=== PATIENT | male | born 1960 | race Caucasian/White ===

== ENCOUNTER → 2016-08-10 | Outpatient (CLI) | payer BC | LOC: BHSO 11:11 | DX: F10.20 Alcohol dependence, uncomplicated (principal) ==

== ENCOUNTER → 2016-11-02 | Outpatient (CLI) | payer BC | LOC: BHSO 10:13 | DX: F10.20 Alcohol dependence, uncomplicated (principal) ==

== ENCOUNTER → 2017-02-02 | Outpatient (CLI) | payer BC | LOC: BHSO 09:55 | DX: F10.20 Alcohol dependence, uncomplicated (principal) ==

== ENCOUNTER → 2017-04-26 | Outpatient (CLI) | payer BC | LOC: BHSO 08:15 | DX: F10.20 Alcohol dependence, uncomplicated (principal) ==

== ENCOUNTER → 2017-12-14 | Outpatient (CLI) | payer BC | LOC: BHSO 08:05 | DX: F10.20 Alcohol dependence, uncomplicated (principal) | CPT/HCPCS: G0463 ==

== ENCOUNTER → 2018-05-31 | Outpatient (CLI) | payer BC | LOC: BHSO 07:58 | DX: F10.20 Alcohol dependence, uncomplicated (principal) | CPT/HCPCS: G0463 ==

== ENCOUNTER → 2018-08-10 | Outpatient (CLI) | payer BC | LOC: BHSO 08:11 | DX: F41.1 Generalized anxiety disorder (principal) | CPT/HCPCS: G0463 ==

== ENCOUNTER → 2018-10-03 | Outpatient (CLI) | payer BC | LOC: BHSO 07:55 | DX: F10.20 Alcohol dependence, uncomplicated (principal) | CPT/HCPCS: G0463 ==

== ENCOUNTER → 2019-01-12 | Outpatient (CLI) | payer BC | LOC: BHSO 08:03 | DX: F10.20 Alcohol dependence, uncomplicated (principal) | CPT/HCPCS: G0463 ==